=== PATIENT | female | born 1930 ===

== ENCOUNTER → 2017-12-18 | Outpatient (CLI) | payer MEDICARE ==
[~2017-12-18] MED LIST: BETD15T TOP; CHOL10005 PO; LEVO88TA45 PO; LOPE-111 PO; MIRA25TA PO; MIRT-22 PO; MOM PO; MULT1TAB67 PO; NITR-105 PO; PROP20TA56 PO; RISP0.2548 PO; RISP0.5T82 PO; VENL37.53 PO; VENL75CA58 PO
[2017-12-18 16:45] LABS: PLATELET COUNT, AUTOMATED 119 K/uL (150-450)
== END ==
LOC: LAB 16:26
PROVIDERS: ATTEND Family Medicine
DX: I10 Essential (primary) hypertension (principal); E55.9 Vitamin D deficiency, unspecified
CPT/HCPCS: 36415; 82040; 82247; 82306; 82310; 82374; 82435; 82565; 82947; 84075; 84132; 84155; 84295; 84450; 84460; 84520; 85025

== ENCOUNTER → 2018-01-06 | Outpatient (CLI) | payer MEDICARE | LOC: LAB 17:16 | PROVIDERS: ATTEND Family Medicine | DX: R32 Unspecified urinary incontinence (principal); R82.90 Unspecified abnormal findings in urine | CPT/HCPCS: 81001 ==

== ENCOUNTER → 2018-07-23 | Outpatient (CLI) | payer MEDICARE ==
[~2018-07-23] MED LIST changes: +FLUT16SP19 NS; +GUAI600T57 PO; +LEVO750T44 PO
--- NOTE | 2018-07-23 12:19 | RADIOLOGY IMAGING REPORT ---
FACILITY: [facility] PATIENT NAME: Jen Lopez : 1930 MR: [id number] V: [id number] EXAM DATE: ORDERING PHYSICIAN: MARISSA LÓPEZ TECHNOLOGIST: Location: [facility] Patient: Jen Lopez : 1930 Visit/Account:[id number] Date of Sevice: 07/23/2018 Left shoulder, three views. HISTORY: Left shoulder pain. COMPARISON: None. Small marginal osteophytes, tiny subchondral cysts, and severe joint space narrowing are present in t he acromioclavicular joint. Small marginal osteophytes, small subchondral cysts, and mild joint spac e narrowing are present in the glenohumeral joint. Mild spurring is present along the for aspect of the acromion process. The acromiohumeral distance is normal. No acute fractures. The bones are ost eopenic. The aortic knob is calcified. 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 Acromion spurring which may predispose to supraspinatus impingement. Report Dictated By: Ej Larkin MD at 07/23/2018 12:12 PM Report E-Signed By: Ej Larkin MD at 07/23/2018 12:14 PM WSN:CELINE
== END ==
LOC: RAD 11:11
PROVIDERS: ATTEND Nurse Practitioner Primary Care
DX: M19.012 Primary osteoarthritis, left shoulder (principal)

== ENCOUNTER → 2018-08-11 | Outpatient (CLI) | payer MEDICARE ==
[~2018-08-11] MED LIST changes: +DICL100G39 TOP
[2018-08-11 10:11] LABS: PLATELET COUNT, AUTOMATED 115 K/uL (150-450)
== END ==
LOC: LAB 09:14
PROVIDERS: ATTEND Family Medicine
DX: E03.9 Hypothyroidism, unspecified (principal); E50.9 Vitamin A deficiency, unspecified; F32.9 Major depressive disorder, single episode, unspecified
CPT/HCPCS: 36415; 82040; 82247; 82306; 82310; 82374; 82435; 82565; 82947; 84075; 84132; 84155; 84295; 84443; 84450; 84460; 84520; 85025

== ENCOUNTER 2018-09-10 16:15 | Outpatient (RCR) | payer MEDICARE ==
--- NOTE | 2018-08-28 18:23 | PT INITIAL EVALUATION ---
MEDICAL DIAGNOSIS: Supraspinatus syndrome of L shoulder, Impingement syndrome L shoulder TREATMENT DIAGNOSIS: L shoulder impingement, rotator cuff tendinopathy DATE OF ONSET: 08/11/18 SUBJECTIVE: Jen is a 88 year old female who presents with pain in L shoulder which started a couple of weeks ago with no known injury to the shoulder. Pain started in the back of the shoulder and started moving forward. Pt rates her pain at a 0/10 currently but once she begins to move the shoulder the pain increases and is a sharp pain. Pt denies pain moving down the arm and no numbness or tingling in the arm of fingers. Pt denies neck pain. Hobbies include knitting and pt is R handed. Pt lives at the [facility] where care is provided. REHAB PROBLEM LIST: Increased Pain Decreased ROM Decreased Strength Decreased Endurance Decreased Function Decreased ADL's Decreased Mobility PREVIOUS MEDICAL HISTORY: See EMR OBJECTIVE: Posture: Pt has increased thoracic kyphosis with rounded shoulders B. ROM: Cervical ROM: Flexion: full, Extension: full, L Rot: moderate restrictions with pain on L side of the neck, R sidebend: severe restriction, L sidebend: moderate restrictions Shoulder ROM (L,R): Flexion: 120, 142, Abd: Pain 55-110, 110, ER: 60 with pain in shoulder, 60, IR: T8, T11 Strength: Shoulder MMT (L,R): Ext: 5, 5, Flexion: 4+, 5, ER: 5 pain, 5, IR: 4- pain, 4+, Abd: 5, 5 Palpation: No tenderness to palpation noted along the glenohumeral joint. Special Tests: Empty Can (+)L, Neer's: (+)L, Drop Arm: (-)L, IR Lift off (-)L Other Objective Findings: Quick DASH: 20.45% impairment ASSESSMENT: Pt presents to physical therapy with signs and symptoms consistent with L shoulder impingement resulting in supraspinatus, infraspinatus, and subscapularis tendinopathy. Physical therapy is indicated to address the above deficits to improve overall function with ADL's. Short Term Goals Pt will improve shoulder flexion and abduction ROM to equal to the contralateral limb in the next 6 weeks to improve overall function with ADL's. Pt will improve shoulder flexion and IR strength to a 5/5 in the next 6 weeks to improve overall function with ADL;s. Pt will improve Quick DASH impairment score to less than 10% in the next 6 weeks to improve overall function with ADL's. Patient's Goals Decrease pain and increase function of the L arm. PLAN: Patient to be seen for Manual Therapy/STM/MET Strengthening/condition Ice/Heat Range of Motion Spinal Stabilization Ultrasound Stretching Iontophoresis Neuromuscular Re-ed Electrical Stim Posture/Body mechanics Biofeedback Home Exercise Program Therapeutic Activities 3x/Week for 6 Weeks If you have any questions, comments, or concerns about this report or plan, please contact me at . Thank you, Mary Schmid, PT, DPT, CLT Donna Gavin, SPT This Physical Therapist was present for the entire physical therapy session directing the services, making the skilled judgement, and was not engaged in treating another patient or doing another task at the same time as the treatment session. ANMOL
[~2018-09-10 16:15] MED LIST changes: +DOXY-252 PO; +VENL150C3 PO
[2018-10-01] MEDS ORDERED: DIVA250T81 PO (16:42)
[2018-10-20] MEDS ORDERED: DIVA250T81 PO (09:32)
--- NOTE | 2018-10-20 15:08 | PT PLAN OF CARE ---
Physician: Clair Capellan MD Patient is being seen: 2-3x/Week Therapist: Mary Schmid, PT, DPT, CLT Medical Diagnosis: Supraspinatus syndrome of L shoulder, Impingement syndrome L shoulder Treatment Diagnosis: L shoulder impingement, rotator cuff tendinopathy Date of Onset: 08/11/18 Date of Initial Evaluation: 08/28/18 Date patient was last seen: 09/10/18 Number of treatments: 6 Number of cancellations/No shows: 0 INTERVENTIONS: Manual Therapy/STM/MET Strengthening/condition Ice/Heat Range of Motion Spinal Stabilization Ultrasound Stretching Iontophoresis Neuromuscular Re-ed Electrical Stim Posture/Body mechanics Biofeedback Home Exercise Program Therapeutic Activities GOALS: Pt will improve shoulder flexion and abduction ROM to equal to the contralateral limb in the next 6 weeks to improve overall function with ADL's. Pt will improve shoulder flexion and IR strength to a 5/5 in the next 6 weeks to improve overall function with ADL;s. Pt will improve Quick DASH impairment score to less than 10% in the next 6 weeks to improve overall function with ADL's. PATIENT'S GOAL: Decrease pain and increase function of the L arm. Status of Patient's Goals: Discontinued Patient Compliance: Fair Prognosis: Good Reasons for discharge from therapy: Jen is to discharge from physical therapy at this time secondary to pt preference following development of personal matters interfering with her ability to schedule further sessions. At the time of discharge, Jen showed excellent progress with strengthening with shoulder pain completely absent over the last couple sessions. Jen required occasional cuing for scapular positioning with progressing motion but showed improved posture overall. Both flexion and abduction shoulder motions were equal at the time of discharge without pain and Jen was progressing towards added weight throughout motion. Upon discharge pt is to maintain performance of HEP and seek further PT at a later time if symptoms persist. Posture: Pt has increased thoracic kyphosis with rounded shoulders B. ROM: Cervical ROM: Flexion: full, Extension:full, L Rot: moderate restrictions with pain on L side of the neck, R side bend: severe restriction, L sidebend: moderate restrictions Shoulder ROM (L,R): Flexion: full B, Abd: full B, ER: 60 with pain in shoulder, 60, IR: T8, T11 Strength: Shoulder MMT (L,R): Ext: 5, 5, Flexion: 4+, 5, ER: 5 pain, 5, IR: 4- pain, 4+, Abd: 5, 5 Palpation: No tenderness to palpation noted along the glenohumeral joint. If you have any questions or concerns, please feel free to contact me at [phone]. Thank you, Mary Schmid, PT, DPT, CLT CHAITANYAD
== END 2018-09-10 18:00 | disposition home or self-care (01) ==
LOC: PT 16:15
PROVIDERS: ATTEND Family Medicine
DX: M75.102 Unspecified rotator cuff tear or rupture of left shoulder, not specified as traumatic (principal); M75.42 Impingement syndrome of left shoulder
CPT/HCPCS: 97161

== ENCOUNTER 2018-11-19 12:52 | Outpatient (RCR) | payer MEDICARE ==
[2018-10-15 13:37] VITALS: BP 134/72
[2018-10-15 14:42] LABS: PLATELET COUNT, AUTOMATED 137 K/uL (150-450)
--- NOTE | 2018-10-15 20:46 | ONCOLOGY CONSULTATION ---
EVENT DATE: October 15, 2018 REFERRING PROVIDER Clair Capellan MD REASON FOR CONSULTATION Pancytopenia. CHIEF COMPLAINT Right knee pain. HISTORY OF PRESENT ILLNESS Jen is a very pleasant, 88-year-old female who is here today at the request of Dr. Capellan for evaluation of pancytopenia. She is joined by her family. Jen reports that she is feeling pretty well in general. She reports no problems with recurrent or severe infection, and she denies fever today. Her energy level has been fair. She reports no shortness of breath with exertion and no lightheadedness. She has had no problems with severe nosebleeds, and she has noticed no melena or hematochezia. She has not had any abnormal vaginal bleeding. She has noticed no exaggerated bruising. She understands that her blood counts are low, and she is here today to discuss further diagnostics and management. REVIEW OF SYSTEMS Otherwise negative with the exception of right knee pain which has been bothering her for quite some time. CURRENT MEDICATIONS 1. Venlafaxine. 2. Levothyroxine. 3. Vitamin D3. 4. Betamethasone topical. 5. Flonase. 6. Mirtazapine. 7. Mucinex. 8. Propranolol. 9. Voltaren gel. ALLERGIES Include PENICILLINS, MORPHINE, NICKEL, and THIMEROSAL. SOCIAL HISTORY The patient is a nonsmoker. There is no known history of alcohol abuse. There is no history of illicit drug use. FAMILY HISTORY There is a history of Alzheimer disease in her father and cancer of some sort in her grandmother. Her mother had heart disease. There is also a family history of lung cancer. VITAL SIGNS Temperature is 98.1, blood pressure 131/72, heart rate is 82, respirations 16, oxygen saturation is 89% on room air. Weight is 73.4 kg. PHYSICAL EXAMINATION GENERAL: Patient is alert and oriented times three, no apparent distress, sitting in exam room chair. She is interactive and pleasant. She appears younger than stated age. HEENT: Anicteric sclerae. NEUROLOGIC: Grossly nonfocal, and her gait is normal. Short-term memory perhaps somewhat impaired. EXTREMITIES: No edema, clubbing, or cyanosis. SKIN: No concerning rash or lesion. LABORATORY STUDIES Reviewed per the [facility] record. ASSESSMENT AND RECOMMENDATIONS Pancytopenia. I had a good visit with Jen today. We spent time discussing her current symptoms or lack thereof. She is not having problems with recurrent or severe infection, severe fatigue due to anemia, or problems with bleeding or bruising due to thrombocytopenia. We discussed the potential etiologies for her low blood counts. The differential diagnosis at this point is broad. We will begin her workup with additional peripheral blood studies to include a repeat CBC with peripheral smear review and reticulocyte count. Nutritional studies will be sent as well. We will send an SPEP and immunofixation as well as serum free light chain ratio and immunoglobulin panel. We will use this workup as a starting point, but we did discuss the possibility of bone marrow biopsy in the future should our workup reveal no answers. We briefly discussed the procedure itself, but at this point, I am hesitant to make her do a bone marrow biopsy with her lack of symptoms. I will plan to have the patient follow up with me in the next few weeks to review the results of her labs. Further decision making will take place from there. All questions answered today. Thank you very much, Dr. Capellan, for allowing me to take part in the care of this delightful patient. Please do not hesitate to call with any questions or concerns. ANMOL
[~2018-11-19 12:52] MED LIST changes: +DIVA250T81 PO
[2018-11-19 13:12] VITALS: BP 146/72
--- NOTE | 2018-11-19 17:02 | ONCOLOGY FOLLOW UP NOTE ---
EVENT DATE: November 19, 2018 REASON FOR FOLLOWUP Pancytopenia. INTERIM HISTORY Ms. Prescott returns to clinic for a followup visit today. She is accompanied by caregiver who is an RN. She reports that since our first visit, there has really been very little change in her overall status. She remains somewhat tired, but this has not been particularly problematic. She denies new pain. She has had no fever. She has had no problems with infection in general. She reports no abnormal bruising or bleeding. She is here to follow up on the results of her peripheral blood work. REVIEW OF SYSTEMS Positive for feelings of anger at times. Otherwise negative. CURRENT MEDICATIONS 1. Venlafaxine. 2. Levothyroxine. 3. Vitamin D3. 4. Betamethasone topical. 5. Flonase. 6. Mirtazapine. 7. Mucinex. 8. Propranolol. 9. Voltaren gel. ALLERGIES PENICILLINS, MORPHINE, NICKEL, and THIMEROSAL. SOCIAL HISTORY The patient is a nonsmoker. There is no known history of alcohol abuse. There is no history of illicit drug use. FAMILY HISTORY There is a history of Alzheimer disease in her father and cancer of some sort in her grandmother. Her mother had heart disease. There is also a family history of lung cancer. VITAL SIGNS Temperature is 99.1, blood pressure 146/72, heart rate is 92, respirations 16, oxygen saturation 92% on room air. Weight is 74.8 kg. PHYSICAL EXAMINATION GENERAL: Patient is alert and oriented times three, no apparent distress, sitting in exam room chair. HEENT: Anicteric sclerae. NEUROLOGIC: Grossly nonfocal, and her gait is normal. EXTREMITIES: No edema, clubbing, or cyanosis. LABORATORY STUDIES [facility]. ASSESSMENT AND RECOMMENDATIONS Pancytopenia. I had a good visit with the patient and her caregiver today. Symptomatically, she continues to be stable. She does not have any red flag symptoms today when it comes to infection, anemia symptoms, or abnormal bruising or bleeding. Her counts are relatively stable from prior. We spent time today reviewing the rest of her peripheral blood workup. She does not appear to be nutritionally deficient, and her plasma cell dyscrasias are negative. Her reticulocyte count is normal at this time. As discussed, although her labs were not particularly helpful in making a definitive diagnosis, they are of use in ruling out potentially dangerous things. Her peripheral smear had apparently been read, and there are no particular concerns in this regard after calling Pathology today. My estimate at this point would be that she has a low-grade myelodysplasia, but the only way to confirm this would be with a bone marrow biopsy. The patient is not at all in favor of undergoing the procedure. Therefore, I have recommended that she have periodic checks of her CBC ongoing. Quarterly CBCs would be quite reasonable to start. As discussed also, I would be more than happy to see her in the future if there are questions or concerns. ANMOL
== END 2019-01-08 ==
LOC: ONC 12:52
PROVIDERS: ATTEND Internal Medicine Medical Oncology
DX: D61.818 Other pancytopenia (principal); M25.561 Pain in right knee
CPT/HCPCS: 82607; 82746; 82784; 83615; 83883; 84160; 84165; 85025; 85045; G0463; 82040; 82247; 82310; 82374; 82435; 82565; 82947; 84075; 84132; 84155; 84295; 84450; 84460; 84520; 99202; 99212

== ENCOUNTER → 2019-01-07 | Outpatient (CLI) | payer MEDICARE ==
[2019-01-07 11:16] LABS: PLATELET COUNT, AUTOMATED 122 K/uL (150-450)
== END ==
LOC: LAB 10:55
PROVIDERS: ATTEND Nurse Practitioner Primary Care
DX: R53.83 Other fatigue (principal)
CPT/HCPCS: 36415; 81001; 82040; 82247; 82310; 82374; 82435; 82565; 82947; 84075; 84132; 84155; 84295; 84443; 84450; 84460; 84520; 85025

== ENCOUNTER 2019-04-10 13:54 | Outpatient (RCR) | payer MEDICARE ==
--- NOTE | 2019-01-20 17:00 | PT INITIAL EVALUATION ---
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 Stover). She reports she's become sedentary as any exercise flares R knee pain. Knee FOTO 49%. She notes her balance has deteriorated as she's more sedentary and she's using a walking stick for balance. Pain location is R peripatellar region and described as ache. Pain scale is 4 on a ten point pain scale. Pain is worse with walking, exercise and better with rest. REHAB PROBLEM LIST: Increased Pain, Decreased ROM, Decreased Strength, Lateral Tracking Patella, Decreased Endurance, Decreased Balance, Decreased Function, Decreased Mobility, Decreased Gait PREVIOUS MEDICAL HISTORY: R TKA OCCUPATION: Retired, lives at [facility], doesn't drive. OBJECTIVE: Posture: R patella is lateral in the groove, mild valgus knees, heels 4" apart. ROM: AROM R knee 0-115, l 0-112 degrees. Strength: Weak R quad set with lateral tracking patella, R quad 4-/5, hamstrings 4/5, ankle DF 5-/5, calf 2+/5. L quad, hamstrings 4+/5, ankle DF 5/5. Palpation: Non-tender about the R patella, joint line, quad tendon. Scar tissue in the superior quad retinaculum is present. Special Tests: Grade II MCL laxity, Grade I LCL laxity. Mobility: Hypomobile R patellofemoral joint. Gait: Dynamic Gait Index 54% impairment. Jen ambulates with walking stick with feet not passing each other, do clear the floor. She turns slowly with mild LOB. Balance: Double limb support only, reduced WS in stance, no stepping reflexes apparent. ASSESSMENT: Jen Prescott presents with lateral tracking patella creating pain with ambulation, exercise, weakness, also altered balance creating fall risk. She's started on a patellofemoral tracking HEP and is suggested to buy a hinged knee brace to support the collateral ligaments. Short Term Goals One month: Jen ambulates short community distances with walking stick, knee pain 2-3/10. Two months: Jen demonstrates stepping balance reactions on firm surfaces, independent short distance community ambulator with R knee pain 1-11/30. Three months: Jen is an independent long distance community ambulator without R knee pain Patient's Goals Walk without knee pain and improve balance. PLAN: Patient to be seen for Manual Therapy, Strengthening/condition, Ice/Heat, Range of Motion, Stretching, Neuromuscular Re-ed, Electrical Stim, Gait Trg/Balance Trg, Home Exercise Program 2x/Week for 8-12 weeks Thank you for this referral. If you have any questions, comments, or concerns about this report or plan, please contact me at . [facility]
--- NOTE | 2019-02-25 09:03 | PT PLAN OF CARE ---
Physician: Dr. Clair Capellan Patient is being seen: 2x/week Therapist: Yoli Song, PT Medical Diagnosis: M25.561 R knee pain Treatment Diagnosis: Same, Altered gait, Imbalance Date of Onset: 10/21/07 Date of Initial Evaluation: 01/20/19 Date patient was last seen: 02/24/19 Number of treatments: 10 Number of cancellations/No shows: 0 INTERVENTIONS: Therapeutic Exercise, Manual Therapy, Home Exercise Program GOALS: One month: Jen ambulates short community distances with walking stick, knee pain 2-3/10. (progressing) Two months: Jen demonstrates stepping balance reactions on firm surfaces (not met), independent short distance community ambulator with R knee pain 1- 2/10 (not met). Three months: Jen is an independent long distance community ambulator without R knee pain. (not met) PATIENT'S GOAL: Walk without knee pain and improve balance. (both progressing) Patient Compliance: Good Prognosis: Excellent Reasons for continuing therapy: S: Jen reports her knee pain had resolved then has returned this week. She notes walking short distances is pain free but short community distances creates knee pain 4/10. Knee FOTO 52%. She relates she's sedentary when not in PT. We discussed the need to be more active. Posture: R patella remains lateral in the groove. ROM: AROM R knee 0-115. Strength: Now moderate R quad set with lateral tracking patella, R quad 4/5. Gait: Cane, feet pass each other, slow cadance. Balance: Double limb support, slow stepping reactions. Mobility: Improved R patellofemoral joint mobility to 45 degrees, then hypomobile. Tight R quad, psoas, IT band and hamstrings. A/P: Pushpa Prescott is improving quad strength gradually, improving patellofemoral joint mobility. She could benefit from continue PT to work balance, strengthening, gait to attain goals. If you agree, we'll continue PT another 6 weeks, 2x/week. Thank you. ANMOL
--- NOTE | 2019-04-03 16:31 | PT PLAN OF CARE ---
Physician: Dr. Clair Capellan Patient is being seen: 2x/week Therapist: Yoli Song, PT Medical Diagnosis: M25.561 R knee pain Treatment Diagnosis: Same, Altered gait, Imbalance Date of Onset: 10/21/07 Date of Initial Evaluation: 01/20/19 Date patient was last seen: 04/03/19 Number of treatments: 20 Number of cancellations/No shows: 0 INTERVENTIONS: Strengthening/condition, Ice/Heat, Range of Motion/Stretching, Electrical Stim, Gait Trg/Balance Trg GOALS: One month: Jen ambulates short community distances with walking stick, knee pain 2-3/10. met Two months: Jen demonstrates stepping balance reactions on firm surfaces (progressing), independent short distance community ambulator with R knee pain 1-2/10. (met) Three months: Jen is an independent long distance community ambulator without R knee pain. (not met< short distance) PATIENT'S GOAL: Walk without knee pain (met) and improve balance (progressing). Patient Compliance: Excellent Prognosis: Excellent Reasons for continuing therapy: S: Jen reports her R knee has minimal pain, 1/10 with ambulation. She's walked 2 blocks. Knee FOTO improved from 49% to 40% impairment. She feels her balance is still bad but denies falls. She has memory recall difficulties. Posture: R patella is midline in the groove, mild valgus knees, heels 4" apart. ROM: AROM R knee 0-115. Strength: Moderate R quad set with midline tracking patella, R quad 4/5, hamstrings 4+/5, ankle DF 5/5, calf 3/5. Gait/Balance: Independent gait with midfoot strike to heel off, turns slowly with balance. Balance challenges on the level with trunk perturbation, double limb support. Jen demonstrates small stepping strategies on firm surfaces. Mobility: Normal R patellofemoral joint mobility. A/P: Jen Prescott is improving strength, has reduced pain to minimal, needs balance work, has memory difficulties. She and I looked at [facility] exercise class schedule. If you agree, we'll finish next week then DC with recommendation for [facility] fall prevention class, exercise class. Thank you. ANMOL
--- NOTE | 2019-04-10 15:45 | PT PLAN OF CARE ---
Physician: Dr. Clair Capellan Patient is being seen: 2x/week Therapist: Yoli Song, PT Medical Diagnosis: M25.561 R knee pain Treatment Diagnosis: Same, Altered gait, Imbalance Date of Onset: 10/21/07 Date of Initial Evaluation: 01/20/19 Date patient was last seen: 04/07/19 Number of treatments: 21 Number of cancellations/No shows: 0 INTERVENTIONS: Manual Therapy, Strengthening/condition, Range of Motion, Stretching, Neuromuscular Re-ed, Gait Trg/Balance Trg, Home Exercise Program GOALS: One month: Jen ambulates short community distances with walking stick, knee pain 2-3/10. (met) Two months: Jen demonstrates stepping balance reactions on firm surfaces (met), independent short distance community ambulator with R knee pain 1-2/10. (met) Three months: Jen is an independent long distance community ambulator without R knee pain. (not met< short distance) PATIENT'S GOAL: Walk without knee pain (met) and improve balance (met). Patient Compliance: Excellent Prognosis: Excellent Reasons for continuing therapy: S: Jen reports her R knee has minimal pain, 1/10 with ambulation. She's walked 2 blocks. Knee FOTO improved from from 40% to 16% impairment. She is going to do balance class at the [facility]. She has memory recall difficulties. Posture: R patella is midline in the groove, mild valgus knees, heels 4" apart. ROM: AROM R knee 0-120. Strength: Moderate R quad set with midline tracking patella, R hip 5- to 5/5, R quad 5/5, hamstrings 5-/5, ankle DF 5/5, calf 3+/5. Gait/Balance: Independent gait with late heel strike to heel off, turns slowly with balance. Jen demonstrates small stepping strategies on firm surfaces. Single leg stand 1 second. 6 Minute Walk Test: Before BP135/78, O2 90%, HR 82, after BP 151/73, O2 91%, HR 82 (room air) 1 minute 87%, 90 2 minutes 87% 136 3 minutes 86% 103 4 minutes 86% 115 5 minutes: missed measuring 6 minutes 88% 110 Gait speed 1.7 mph, a limited community ambulator Mobility: Normal R patellofemoral joint mobility. A/P: Jen Prescott improved R knee function. I'll call [facility] director Saturday to discuss helping Jen to the [facility] for fall prevention classes. She still has memory difficulties. I'll DC knee PT Thank you. ANMOL
[2019-04-13] MEDS ORDERED: TRIA15CR40 TP (14:56)
== END 2019-04-10 18:00 | disposition home or self-care (01) ==
LOC: PT 13:54
PROVIDERS: ATTEND Family Medicine
DX: M25.561 Pain in right knee (principal); R26.89 Other abnormalities of gait and mobility; Z96.651 Presence of right artificial knee joint
CPT/HCPCS: 97010; 97110; 97112; 97116; 97140; 97161; G0283